=== PATIENT | female | born 2000 | race Caucasian/White ===

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

== ENCOUNTER 2019-01-28 11:27 | Inpatient (IN) | payer OTHER ==
[~2019-01-28] VITALS: Ht 162.6 cm; Wt 75.5 kg
[2019-01-28] VITALS (35 sets, daily range): BP systolic 102–146; BP diastolic 47–86; PULSE 79–123; TEMP 97.3–98.5
--- NOTE | 2019-01-28 11:30 | NUR ---
Pt here with c/o vaginal mucous and ? leaking of fluid. Pt to [facility], explained. Dr Brown here and at bedside. SVE: /-2 and amniotrace undetermined, possible SROM. Amnisure done at this time per physician order. Assessment complete. G2L1, 36.5 weeks gestation. GBS negative. Pt with hx of chlamydia and was treated and hx of genital warts. No outbreaks noted. FHR reactive and pt states baby has been active. Irregular contractions noted. Pt states feeling mucous and leaking at 1030 today. 1215:Amnisure positive. Dr Brown called this nurse and orders received.
[2019-01-28] MEDS ORDERED: PRENATAL (11:59)
--- NOTE | 2019-01-28 12:50 | NUR ---
1250-Recieved report from JoseRN. Patient WL wit EFM on, reports not feeling contractions. Irregular moderate to palpation contractions tracing every 2-5min. FHR Basline 130bpm, moderate varaibility, +accelerations. Reviewed plan of care and consents. 1325-IV to right hand, LR infusing, unable to collect blood for labs, notified lab for blood draw. 1349-Pitocin started per md order and protocol at 2mu/min.
[2019-01-28 13:52] LABS: BASO % 0.1 % (0.0-2.0); EOS # 0.1 (0.0-0.7); GRAN # 5.2 (1.4-6.5); GRAN % 65.1 % (42.2-75.2); HEMATOCRIT 36.4 % (35.0-45.0); HEMOGLOBIN 11.8 g/dl (12.0-15.0); LYMPH % 25.4 % (20.0-51.0); MEAN CELL VOLUME 84 fl (80.0-95.0); MEAN CORPUSCULAR HEMOGLOBIN 27 pg (26.0-32.0); MEAN CORPUSCULAR HGB CONC 32 g/dl (33.0-37.0); MEAN PLATELET VOLUME 11.5 fl (7.4-10.4); MONO # 0.6 (0.1-0.6); MONO % 7.9 % (1.7-9.3); PLATELET COUNT 204 K/mm3 (130-400); RED BLOOD COUNT 4.33 M/mm3 (4.10-5.30)
--- NOTE | 2019-01-28 15:25 | NUR ---
1525-DR. CANCINO ON UNIT. REVIEWS PLAN OF CARE WITH PATIENT. 1526-BEDSIDE SONO BY ,VERTEX PRESENTATION CONFIMRED BY .
--- NOTE | 2019-01-28 16:35 | NUR ---
1635- IN TO SEE PATIENT. SVE /2, AROM FOREBAG BY MD, CLEAR FLUID NOTED, SAMM CARE PROVIDED. REPOSTIONED BACK LL.
--- NOTE | 2019-01-28 16:54 | NUR ---
1654-TO BIRTHING BALL. DIFFICULTY TRACING FHR DUE TO POSITIONING. RN REMAINS AT BEDSIDE FREQUENTLY READJUSTING EFM.
--- NOTE | 2019-01-28 17:10 | NUR ---
1710-PATIENT UP TO BATHROOM. REQUESTS EPIDURAL. LAURA ABAD ON UNIT AND NOTIFIED. 1715-LAURA ABAD INTO ROOM. PATIENT TO BED SITTING UPRIGHT ON BEDSIDE FOR EPIDURAL PLACEMENT. DIFFICULTY TRACING FHR DUE TO MATERNAL POSITIONING. 1724-TEST DOSE ADMINISTERD BY LAURA ABAD VSS PATIENT DENIES SYMPTOMS OF REACTION OR SIDE EFFECTS. 1729-PATIENT BACK WL. UPDATED ON PLAN OF CARE AND SAFETY. 1740-DR. CANCINO ON UNIT REVIEWS FHR MONITOR, WILL AWAIT NEXT SVE PRIOR TO LEAVING UNIT. PLAN TO RECHECK CERIVX AT 174
--- NOTE | 2019-01-28 17:50 | NUR ---
1750-LAI TO DD, SMALL AMOUNT OF CLEAR FLUID IN LAI TUBING, SVE BY THIS RN -/-1 UPDATED MD WHO REMAINS ON UNIT.
--- NOTE | 2019-01-28 18:25 | NUR ---
1824-REPORTED OFF TO BEATRICE LEUNG WHO ASSUMES CARE AT THIS TIME. 1829-DR. CANCINO ON UNIT IN TO ROOM SVE BY BEATRICE LEUNG , ORDERS TO SET UP FOR DELIVERY AND WAIT FOR NURSERY RN TO FINISH REPORT AND COME TO ROOM FOR DELIVERY. REMAINS ON UNIT.
--- NOTE | 2019-01-28 18:38 | NUR ---
183 - Pt positioned into footplates, educated on pushing techniques, pt verbalized understanding. Soto catheter removed. 30 mL clear yellow urine. 1834 - Dr. Song gowned and gloved at perineum, initial push at this time. 1837 - Spontaneous vaginal delivery of viable infant boy. Void by immediately after delivery. Baby placed on mothers abdomen, care of assumed to [facility] RN. Delayed cord clamping around [address] Song, cut by family member. Pitocin off. Cord blood obtained. 1840 - Spontaneous delivery of intact placenta. Fundal massage started by this RN, fundus firm and down 2 from umbilicus, minimal bleeding noted. Pitocin started at 333 mL/hr per protocol. No lacerations per Dr. Song. 1844 - New chux pad beneath patient. Ice pack applied to perineum. Pt repositioned in bed to semi fowlers. Epidural off. recovery started.
--- NOTE | 2019-01-28 21:10 | NUR ---
Pt able to lift and hold each leg off of bed for 5 seconds. Pt repositioned to sitting on edge of bed. Epidural catether removed without diffuculty. Tip blue, round, and intact. Bandaid applied to site. No signs of inflammation. Pt tolerated procedure well. Pt ambulated to then with standby assistance. Pt encouraged to void but did not feel as though she could. Allowed patient to attempt for about 10 minutes, educated on importance of voiding frequently to prevent bladder distention, pt still unable to void. Pericare explained and provided. New gown on. Clean panties and new pad with witch kayleen pads applied. Pt ambulated to room 216 independently with belongings accompanied by staff and family members.
[2019-01-29 02:45] VITALS: BP 123/76; PULSE 95; TEMP 97.6
[2019-01-29 05:50] VITALS: BP 119/79; PULSE 99; TEMP 98.8
[2019-01-29 08:11] LABS: HEMOGLOBIN 10.1 g/dl (12.0-15.0)
[2019-01-29 08:16] LABS: HEMATOCRIT 31.3 % (35.0-45.0)
[2019-01-29 08:30] VITALS: BP 112/53; PULSE 91; TEMP 97.9
[2019-01-29] MEDS ORDERED: IBU600 MG PO (10:27)
[2019-01-29 12:30] VITALS: BP 105/59; PULSE 75; TEMP 98.6
[2019-01-29 16:00] VITALS: BP 113/63; PULSE 96; TEMP 98.7
[2019-01-29 20:26] VITALS: BP 105/91; PULSE 74; TEMP 98.2
[2019-01-30 08:45] VITALS: BP 108/62; PULSE 90; TEMP 98.3
== END 2019-01-30 12:10 | disposition home or self-care (01) | DRG 807 ==
LOC: LDRO 11:27 → LDR 11:29 → LDRO 12:14 → LDR 12:15 → OB 12:16
PROVIDERS: Obstetrics & Gynecology; ADMIT Obstetrics & Gynecology
PROC: 10E0XZZ Delivery of Products of Conception, External Approach (ICD-10-PCS; principal; 2019-01-28)
DX: O42.013 Preterm premature rupture of membranes, onset of labor within 24 hours of rupture, third trimester (principal); Z37.0 Single live birth; Z3A.36 36 weeks gestation of pregnancy; Z28.21 Immunization not carried out because of patient refusal; O99.02 Anemia complicating childbirth; D64.9 Anemia, unspecified; O76 Abnormality in fetal heart rate and rhythm complicating labor and delivery
CPT/HCPCS: J2590; J7120

== ENCOUNTER 2019-11-24 12:40 | Emergency (ER) | payer OTHER ==
[~2019-11-24] VITALS: Ht 162.6 cm; Wt 68.2 kg
[2019-11-24 12:40] VITALS: TEMP 98.1
[~2019-11-24 12:40] MED LIST changes: +IBU600 MG PO; +PRENATAL
[2019-11-24 13:41] LABS: BASO % 0.1 % (0.0-2.0); EOS # 0.1 (0.0-0.7); GRAN # 5.1 (1.4-6.5); GRAN % 70.6 % (42.2-75.2); HEMOGLOBIN 11.9 g/dl (12.0-15.0); LYMPH # 1.6 (1.2-3.4); LYMPH % 21.9 % (20.0-51.0); MEAN CELL VOLUME 84 fl (80.0-95.0); MEAN CORPUSCULAR HEMOGLOBIN 27 pg (26.0-32.0); MEAN CORPUSCULAR HGB CONC 32 g/dl (33.0-37.0); MONO # 0.4 (0.1-0.6); MONO % 6.1 % (1.7-9.3); PLATELET COUNT 195 K/mm3 (130-400); RED BLOOD COUNT 4.37 M/mm3 (4.10-5.30); REDCELL DISTRIBUTION WIDTH-CV 13.8 % (11.5-14.5)
[2019-11-24 13:43] LABS: HEMATOCRIT 36.7 % (35.0-45.0)
[2019-11-24 13:44] LABS: COLLECTION METHOD CLEAN CATCH
[2019-11-24 13:55] LABS: ALBUMIN 4.2 gm/dL (3.5-5.0); BILIRUBIN,TOTAL 0.5 mg/dL (0.0-1.0); CALCIUM 9.4 mg/dL (8.4-10.2); CREATININE, serum 0.58 (0.52-1.25); POTASSIUM 3.7 mmol/L (3.4-5.0); TOTAL PROTEIN 7.3 gm/dL (6.4-8.2)
[2019-11-24 13:56] LABS: MUCOUS Present /lpf; PH 5 (5-8); URINE APPEARANCE Hazy; URINE BACTERIA None Seen /hpf; URINE BILIRUBIN Negative (NEGATIVE); URINE BLOOD Negative (NEGATIVE); URINE COLOR Yellow; URINE GLUCOSE Negative (NEGATIVE); URINE KETONE Negative (NEGATIVE); URINE LEUKOCYTE ESTERASE Trace (NEGATIVE); URINE NITRATE Negative (NEGATIVE); URINE PROTEIN(semi-quant) 1+ (NEGATIVE); URINE RBC 0-2 /hpf; URINE UROBILINOGEN Negative (NEGATIVE)
[2019-11-24 15:30] VITALS: BP 118/68; PULSE 78
== END 2019-11-24 15:35 | disposition home or self-care (01) ==
LOC: COL.ER 12:40
PROVIDERS: Physician Assistant
DX: O26.51 Maternal hypotension syndrome, first trimester (principal); Z3A.12 12 weeks gestation of pregnancy
CPT/HCPCS: J7030

== ENCOUNTER 2020-04-11 10:50 | Outpatient (CLI) | payer OTHER ==
[~2020-04-11] VITALS: Ht 162.6 cm; Wt 72.7 kg
--- NOTE | 2020-04-11 10:10 | NUR ---
Pt here from ER with c/o of vaginal pressure and pain, increased mucous and states "she has just dropped so much in the last 2 weeks". Pt to [facility], explained. Pt has gotten care from [facility] but has transferred care to Dr Brown. Pt has not seen her yet with this . , stating she is waiting for them to transfer her records before they will see her. Pt states having other [address] Brown. 31/4 weeks gestation. Pt states baby is active, is feeling contractions but not painful. SVE: 1-2/50/-2, anterior and mucous noted on exam glove. Assessment complete. Pt with hx of HSV and 2 vaginal deliveries. [address] Chew electronic publishing specialist and called and updated. See physician notification.
[2020-04-11 10:40] VITALS: BP 112/63; PULSE 100
--- NOTE | 2020-04-11 10:48 | NUR ---
Pt is having occasional contractions, Dr Chew called. see physician notification. 1055:IV started to right hand x 1 attempt. Blood drawn from IV site and LR bolus infusing. 1110:Pt calls out crying in right flank pain. States it just started right now and is contsant. Dr Chew called and notified. Updated on pt vital signs and right flank pain. Labs and UA ordered. 1121:Pt up to bathroom and UA obtained. will notify physician of results. 1130:Pt states she is feeling a bit better after getting up. Pain is still there, pt not crying. Tylenol given PO. See EMAR.
[2020-04-11 10:56] VITALS: BP 112/63; PULSE 100; TEMP 98.5
[2020-04-11 11:39] LABS: COLLECTION METHOD CLEAN CATCH
[2020-04-11 11:40] VITALS: BP 119/71; PULSE 96
[2020-04-11 11:44] LABS: BASO % 0.1 % (0.0-2.0); EOS # 0.2 (0.0-0.7); EOS % 1.8 % (0-4.0); GRAN # 5.9 (1.4-6.5); GRAN % 69.3 % (42.2-75.2); HEMATOCRIT 30.7 % (35.0-45.0); HEMOGLOBIN 9.7 g/dl (12.0-15.0); LYMPH # 1.8 (1.2-3.4); LYMPH % 21.1 % (20.0-51.0); MEAN CELL VOLUME 84 fl (80.0-95.0); MEAN CORPUSCULAR HEMOGLOBIN 27 pg (26.0-32.0); MEAN CORPUSCULAR HGB CONC 32 g/dl (33.0-37.0); MEAN PLATELET VOLUME 11.5 fl (7.4-10.4); MONO # 0.6 (0.1-0.6); MONO % 7.1 % (1.7-9.3); PLATELET COUNT 192 K/mm3 (130-400); RED BLOOD COUNT 3.64 M/mm3 (4.10-5.30); REDCELL DISTRIBUTION WIDTH-CV 13.2 % (11.5-14.5)
[2020-04-11 11:53] LABS: MUCOUS Present /lpf; PH 7 (5-8); SQUAMOUS EPITHELIAL 0-2 /hpf; URINE APPEARANCE Clear; URINE BACTERIA Rare /hpf; URINE BILIRUBIN Negative (NEGATIVE); URINE BLOOD 1+ (NEGATIVE); URINE COLOR Straw; URINE GLUCOSE Negative (NEGATIVE); URINE KETONE Negative (NEGATIVE); URINE LEUKOCYTE ESTERASE 1+ (NEGATIVE); URINE NITRATE Negative (NEGATIVE); URINE PROTEIN(semi-quant) Negative (NEGATIVE); URINE RBC None Seen /hpf; URINE UROBILINOGEN Negative (NEGATIVE)
[2020-04-11 11:55] LABS: ALBUMIN 3.4 gm/dL (3.5-5.0); BILIRUBIN,TOTAL 0.4 mg/dL (0.0-1.0); CALCIUM 8.9 mg/dL (8.4-10.2); CREATININE, serum 0.43 (0.52-1.25); POTASSIUM 3.5 mmol/L (3.4-5.0); TOTAL PROTEIN 6.6 gm/dL (6.4-8.2)
[2020-04-11 12:40] VITALS: BP 108/58; PULSE 82
--- NOTE | 2020-04-11 12:43 | NUR ---
physician here. See physician notification. 1250:INT removed. Pt states pain is now gone from right flank pain. Discharge instructions given. Pt verbalizes understanding, will f/u with Dr Brown.
== END 2020-04-11 12:50 | disposition home or self-care (01) ==
LOC: LDRO 10:50 → LDR 11:35 → LDRO 12:50
PROVIDERS: Obstetrics & Gynecology
DX: O26.893 Other specified pregnancy related conditions, third trimester (principal); R10.2 Pelvic and perineal pain; Z3A.31 31 weeks gestation of pregnancy
CPT/HCPCS: OP; J7120

== ENCOUNTER → 2020-05-11 | Outpatient (CLI) | payer OTHER ==
[~2020-05-11] VITALS: Ht 162.6 cm; Wt 74.5 kg
--- NOTE | 2020-05-11 09:20 | NUR ---
Pt here with c/o ?srom, stating she has had some increased discharge. Pt to [facility], explained. 36.2 weeks gestation G3L2. Pt has been 3cm dilated for several weeks and is seeing M for growth US. SVE: amnitrace is negative and cervix is 3cm/70/-2. White discharge noted, bag of quiñones palpated on exam. Assessment complete. 0942: Dr Fletcher called and updated. See physician notification. 0955:Discharge instructions given, pt verbalizes understanding. 1000:pt to personal vehicle.
[2020-05-11 09:30] VITALS: BP 125/75; PULSE 90; TEMP 98.7
== END ==
LOC: LDRO 09:08
DX: O34.63 Maternal care for abnormality of vagina, third trimester (principal); Z3A.36 36 weeks gestation of pregnancy